=== PATIENT | female | born 1985 | race Caucasian/White ===

== ENCOUNTER 2018-11-17 05:04 | Inpatient (IN) | payer OTHER ==
[2018-11-17] MEDS ORDERED: Calcium Carbonate 500 MG Tab.Chew PO PRN (06:33)
[2018-11-17] MEDS ORDERED: Acetaminophen 325 MG Tab PO PRN (06:33)
[2018-11-17] MEDS ORDERED: Ondansetron 4 MG/2 ML SDV IV PRN (06:33)
[2018-11-17] MEDS ORDERED: Sodium Chloride 0.9% 10 ML Syringe FLUSH PRN (06:33)
[2018-11-17] MEDS ORDERED: fentaNYL 100 MCG/2 ML SDV IVPUSH PRN (06:33)
[2018-11-17] MEDS ORDERED: Lactated Ringers 500 ML IV SCH (07:00)
[2018-11-17] MEDS ORDERED: ePHEDrine 50 MG/ML SDV IVPUSH PRN (07:11)
[2018-11-17] MEDS ORDERED: Lactated Ringers 1,000 ML IV SCH (07:15)
--- NOTE | 2018-11-17 08:16 | PCM.LDHP ---
L&D History of Present Illness - General Date of Service: 11/17/18 Admit Problem/Dx: Patient Status Order with Admit Dx/Problem 11/17/18 06:34 Patient Status [ADT] Routine Admission Diagnosis/Problem Admission Diagnosis/Problem Source of Information: Patient History Limitations: Reports: No Limitations - History of Present Illness Associated Symptoms: Reports: N - Related Data Allergies/Adverse Reactions: Allergies Allergy/AdvReac Type Severity Reaction Status Date / Time No Known Allergies Allergy Verified 11/17/18 05:11 Home Medications: Home Meds Biotin 300 mcg DAILY 11/17/18 [History] Calcium Carbonate [Calcium] 500 mg DAILY 11/17/18 [History] Docosahexanoic Acid [ Dha] 200 mg PO DAILY 11/17/18 [History] Docusate Sodium [Colace] 100 mg BID PRN 11/17/18 [History] Fish Oil/[place]-3 Fatty Acids [Fish Oil 1,000 MG] 1 each PO DAILY 11/17/18 [ History] Omeprazole 40 mg PO ACBREAKFAST 11/17/18 [History] Past Medical History [employer] History: Reports: Psychiatric History: Reports: Other (See Below) Other Psychiatric History: 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 - Infectious Disease History Infectious Disease History: Reports: Chicken Pox Social & Family History - Family History Family Medical History: Noncontributory - Tobacco Use Smoking Status *Q: Former Smoker Years of Tobacco use: 3 Used Tobacco, but Quit: Yes Month/Year Tobacco Last Used: 10/2017 Second Hand Smoke Exposure: Yes - Caffeine Use Caffeine Use: Reports: None - Recreational Drug Use Recreational Drug Use: No H&P Review of Systems - Review of Systems: Review Of Systems: See Below General: Reports: No Symptoms HEENT: Reports: No Symptoms Pulmonary: Reports: No Symptoms Cardiovascular: Reports: No Symptoms Gastrointestinal: Reports: No Symptoms Genitourinary: Reports: No Symptoms Musculoskeletal: Reports: No Symptoms Skin: Reports: No Symptoms Psychiatric: Reports: No Symptoms Neurological: Reports: No Symptoms Hematologic/Lymphatic: Reports: No Symptoms Immunologic: Reports: No Symptoms L&D Exam - Exam Exam: See Below - Vital Signs Vital Signs: Last Vital Signs Temp 36.6 C 11/17/18 07:00 Pulse 90 11/17/18 08:00 Resp 18 11/17/18 08:00 BP 131/75 11/17/18 08:00 Pulse Ox Weight: 113.398 kg - OB Specific Contraction Duration (sec): 40-70 Contraction Frequency (min): 2.5-3 Contraction Intensity: Mild to Moderate Movement: Active Heart Tones: Present Heart Rate (FHR) Variability: Moderate (6-25 bmp) Presentation: Vertex - Lorenz Score Lorenz Score Cervix Position: Posterior Lorenz Score Consistency: Soft Lorenz Score Effacement: 51-70% Lorenz Score Dilation: 1-2 cm Lorenz Score Infant's Station: -3 Lorenz Score Total: 5 - Exam General: Alert, Oriented, Cooperative HEENT: PERRLA, Conjunctiva Clear, EACs Clear, EOMI, Hearing Intact, Mucosa Moist & [place], Nares Patent, Normal Nasal Septum, Posterior Pharynx Clear, TMs Clear Neck: Supple, Trachea Midline Lungs: Clear to Auscultation, Normal Respiratory Effort Cardiovascular: Regular Rate, Regular Rhythm GI/Abdominal Exam: Normal Bowel Sounds, Soft, Non-Tender, No Organomegaly, No Distention, No Abnormal Bruit, No Mass, Pelvis Stable Rectal Exam: Normal Exam, Normal Rectal Tone Genitourinary: Normal external exam, Normal bimanual exam, Normal speculum exam Back Exam: Normal Inspection, Full Range of Motion Extremities: Normal Inspection, Normal Range of Motion, Non-Tender, No Pedal Edema, Normal Capillary Refill Skin: Warm, Dry, Intact Neurological: Cranial Nerves Intact, Reflexes Equal Bilateral Psychiatric: Alert, Normal Affect, Normal Mood - Patient Data Lab Results Last 24 hrs: Laboratory Results - last 24 hr 11/17/18 11/17/18 11/17/18 Range/Units 05:12 05:12 06:46 WBC 11.7 H (4.5-11.0) K/uL RBC 4.75 (3.30-5.50) M/uL Hgb 13.3 (12.0-15.0) g/dL Hct 39.6 (36.0-48.0) % MCV 83 (80-98) fL MCH 28 (27-31) pg MCHC 34 (32-36) % Plt Count 179 (150-400) K/uL Neut % (Auto) 71 H (36-66) % Lymph % (Auto) 18 L (24-44) % [place] % (Auto) 9 H (2-6) % Eos % (Auto) 1 L (2-4) % Baso % (Auto) 0 (0-1) % Urine Color Yellow Urine Appearance Slightly cloudy Urine pH 6.5 (4.5-8.0) Ur Specific [place] 1.015 (1.008-1.030) Urine Protein Negative (NEGATIVE) mg/dL Urine Glucose (UA) Normal (NEGATIVE) mg/dL Urine Ketones Negative (NEGATIVE) mg/dL Urine Occult Blood Negative (NEGATIVE) Urine Nitrite Negative (NEGATIVE) Urine Bilirubin Negative (NEGATIVE) Urine Urobilinogen Normal (NORMAL) mg/dL Ur Leukocyte Esterase Negative (NEGATIVE) Urine RBC 0-5 (0-5) Urine WBC 0-5 (0-5) Ur Epithelial Cells Moderate Amorphous Sediment Not seen Urine Bacteria Few Urine Mucus Not seen Urine Opiates Screen Negative (NEGATIVE) Ur Oxycodone Screen Negative (NEGATIVE) Urine Methadone Screen Negative (NEGATIVE) Ur Propoxyphene Screen Negative (NEGATIVE) Ur Barbiturates Screen Negative (NEGATIVE) Ur Tricyclics Screen Negative (NEGATIVE) Ur Phencyclidine Scrn Negative (NEGATIVE) Ur Amphetamine Screen Negative (NEGATIVE) U Methamphetamines Scrn Negative (NEGATIVE) Urine MDMA Screen Negative (NEGATIVE) U Benzodiazepines Scrn Negative (NEGATIVE) U Cocaine Metab Screen Negative (NEGATIVE) U Marijuana (THC) Screen Negative (NEGATIVE) Result Diagrams: 11/17/18 05:12 - Problem List (1) Elective induction of labor planned SNOMED Code(s): 041904790 ICD Code: [id number] - Status: Acute Current Visit: Yes (2) Post-term , 40-42 weeks of gestation SNOMED Code(s): 17763012, 911021180 ICD Code: O48.0 - POST-TERM Status: Acute Current Visit: Yes Problem List Initiated/Reviewed/Updated: Yes Orders Last 24hrs: Active Orders 24 hr Category Date Time Status Patient Status [ADT] Routine ADT 11/17/18 06:34 Active Ambulate [RC] PER UNIT ROUTINE Care 11/17/18 06:33 Active Communication Order [RC] ASDIRECTED Care 11/17/18 06:34 Active Non Stress Test [RC] Click to Edit Care 11/17/18 06:34 Active May Shower [RC] ASDIRECTED Care 11/17/18 06:33 Active Notify Provider Vital Signs [RC] PRN Care 11/17/18 06:33 Active Notify Provider [RC] PRN Care 11/17/18 06:34 Active OB Check [OM.PC] Click to Edit Care 11/17/18 05:12 Ordered VTE/DVT Education [RC] Click to Edit Care 11/17/18 06:41 Active Vital Signs [RC] PER UNIT ROUTINE Care 11/17/18 06:34 Active Regular Diet [DIET] Diet 11/17/18 Breakfast Active Acetaminophen [Tylenol] Med 11/17/18 06:33 Active 650 mg PO Q4H PRN Calcium Carbonate [Tums] Med 11/17/18 06:33 Active 1,000 mg PO Q2H PRN Lactated Ringers [Ringers, Lactated] 1,000 ml Med 11/17/18 07:15 Active IV ASDIRECTED Ondansetron [Zofran] Med 11/17/18 06:33 Active 4 mg IV Q4H PRN Oxytocin/Normal Saline [Pitocin in NS 20 Units/1,000 ML Med 11/17/18 06:45 Active ] 20 unit in 1,000 ml IV TITRATE Sodium Chloride 0.9% [Saline Flush] Med 11/17/18 06:33 Active 10 ml FLUSH ASDIRECTED PRN ePHEDrine [ePHEDrine sulfate] Med 11/17/18 07:11 Active 5 mg IVPUSH ASDIRECTED PRN fentaNYL [Sublimaze] Med 11/17/18 06:33 Active 100 mcg IVPUSH Q1H PRN DVT/VTE Prophylaxis Reflex [OM.PC] Routine Oth 11/17/18 06:33 Ordered Saline Lock Insert [OM.PC] Routine Oth 11/17/18 06:34 Ordered Resuscitation Status Routine Resus Stat 11/17/18 06:33 Ordered Medication Orders Acetaminophen (Tylenol) 650 mg PO Q4H PRN PRN Reason: Pain (Mild 1-3) and fever Calcium Carbonate/Glycine (Tums) 1,000 mg PO Q2H PRN PRN Reason: Indigestion Ephedrine Sulfate (Ephedrine Sulfate) 5 mg IVPUSH ASDIRECTED PRN PRN Reason: Hypotension Fentanyl (Sublimaze) 100 mcg IVPUSH Q1H PRN PRN Reason: Pain (moderate 4-6) Oxytocin/Sodium Chloride (Pitocin In Ns 20 Units/1,000 Ml) 20 unit in 1,000 mls @ 6 mls/hr IV TITRATE ISA; Protocol Last Titration: 11/17/18 08:00 Dose: 3 munits/min, 9 mls/hr Admin: 11/17/18 07:00 Dose: 1 munits/min, 3 mls/hr Lactated Ringer's (Ringers, Lactated) 1,000 mls @ 100 mls/hr IV ASDIRECTED ISA Last Admin: 11/17/18 07:20 Dose: 100 mls/hr Ondansetron HCl (Zofran) 4 mg IV Q4H PRN PRN Reason: Nausea/Vomiting Sodium Chloride (Saline Flush) 10 ml FLUSH ASDIRECTED PRN PRN Reason: Keep Vein Open Assessment/Plan Comment:: 11/17/2018 33 yo came in around 0500 at 40 1/7 gestation thinking in active labor. SVE-2-3/80/-3 FHTs category one Has been denise most of night-every 3-5 minutes Was to be an induction planned elective today Decision to augment labor per mother's requests-risks and benefits discussed Labs-A negative, RPR nonreactive, Hep B neg, Hep C neg, HIV neg, GBS neg, Rubella Immune Plan- Admit for augmentation of labor Start Pitocin per protocol Monitor for labor Monitor FHTs pain management per patient request Plan and anticipate a vaginal delivery
[2018-11-17] MEDS ORDERED: Lactated Ringers 1,000 ML IV ONE ×2 (08:29→10:31)
[2018-11-17] MEDS ORDERED: Ropivacaine 100 ML ONE (11:32)
--- NOTE | 2018-11-17 12:18 | ANES ---
DATE OF SERVICE: 11/17/2018 INDICATIONS: Lorena is a 33-year-old female, patient of Betzaida Mijares. I was requested to assess her for labor epidural placement. Upon arrival, I found the quite healthy patient. Discussed with her the procedure as well as risks and benefits and her history and discussed lab work, found no contraindication to labor epidural. She was okay to proceed and consent was received. TECHNIQUE: I had her seated at the edge of the bed. Betadine prep x3 to lumbar region. Sterile drape was placed, 1% lidocaine skin wheal as well as deep at the L3-L4 region. 17- gauge Tuohy was placed to loss of resistance. Negative CSF, negative heme, negative paresthesia. I placed the catheter to 12 cm at the skin. Placed test dose through the catheter 3 mL of 1.5% lidocaine and 1:200,000 epinephrine with negative sequelae. The catheter was then secured to her back, placed in a prone position and dosed her with 12 mL of 0.2% ropivacaine. Began infusion of same at 12 mL an hour. She tolerated the procedure quite well. Please refer to nurse's notes for vital signs and neuro status, which were unchanged and within normal limits. I reported off to the nurse the procedure as well as the dose given, and again, she tolerated the procedure quite well. Tl Cortes CRNA /[id number]
--- NOTE | 2018-11-17 12:44 | PCM.PNLD ---
Labor Progress Note - VS & Meds Vital Signs: Last Vital Signs Temp 36.4 C 11/17/18 10:28 Pulse 77 11/17/18 12:15 Resp 16 11/17/18 12:15 BP 102/50 L 11/17/18 12:15 Pulse Ox 93 L 11/17/18 12:15 Active Medications: Current Medications Acetaminophen (Tylenol) 650 mg PO Q4H PRN PRN Reason: Pain (Mild 1-3) and fever Calcium Carbonate/Glycine (Tums) 1,000 mg PO Q2H PRN PRN Reason: Indigestion Ephedrine Sulfate (Ephedrine Sulfate) 5 mg IVPUSH ASDIRECTED PRN PRN Reason: Hypotension Fentanyl (Sublimaze) 100 mcg IVPUSH Q1H PRN PRN Reason: Pain (moderate 4-6) Oxytocin/Sodium Chloride (Pitocin In Ns 20 Units/1,000 Ml) 20 unit in 1,000 mls @ 6 mls/hr IV TITRATE ISA; Protocol Last Titration: 11/17/18 08:00 Dose: 3 munits/min, 9 mls/hr Lactated Ringer's (Ringers, Lactated) 1,000 mls @ 100 mls/hr IV ASDIRECTED ISA Last Admin: 11/17/18 07:20 Dose: 100 mls/hr Ondansetron HCl (Zofran) 4 mg IV Q4H PRN PRN Reason: Nausea/Vomiting Sodium Chloride (Saline Flush) 10 ml FLUSH ASDIRECTED PRN PRN Reason: Keep Vein Open Discontinued Medications Lactated Ringer's (Ringers, Lactated) 500 mls @ 0 mls/hr IV ASDIRECTED ISA Lactated Ringer's (Ringers, Lactated) 1,000 mls @ 999 mls/hr IV BOLUS ONE Stop: 11/17/18 09:29 Last Admin: 11/17/18 07:50 Dose: 999 mls/hr Lactated Ringer's (Ringers, Lactated) 1,000 mls @ 999 mls/hr IV ONETIME ONE Stop: 11/17/18 11:31 Last Admin: 11/17/18 11:20 Dose: 999 mls/hr Ropivacaine (Naropin 0.2%) Confirm Administered Dose 100 mls @ as directed .ROUTE .STK-MED ONE Stop: 11/17/18 11:33 - Uterine Contractions Uterine Monitoring Mode: External [place] Contraction Frequency (min): 2 Contraction Duration (sec): 40-130 Contraction Intensity: Strong Uterine Resting Tone: Soft - Monitoring Heart Rate (FHR) Variability: Moderate (6-25 bmp) Accelerations: Present, 15x15 - Vaginal Exam Dilation (cm): 8-9 Effacement (Percent): 90 Station: -2 Cervical Position: Anterior Sterile Vaginal Exam Performed By: Betzaida Mijares - Labor Progress (Free Text) Labor Progress: 11/17/2018 Patient progressing nicely in labor SVE-8-9/90/-2 FHTs category one Patient comfortable with epidural in place SROM at sometime before epidural clear fluid Plan- Continue to monitor for active labor Continue to monitor FHTs Continue Pitocin per protocol Continue epidural for pain control Plan and anticipate a vaginal delivery
[2018-11-17] MEDS ORDERED: Docusate Sodium 100 MG Cap PO PRN (14:03)
[2018-11-17] MEDS ORDERED: Benzocaine 20% Top Spray 56 GM Bottle TOP PRN (14:03)
[2018-11-17] MEDS ORDERED: Witch Hazel Medicated Pads 100/Jar TOP PRN (14:03)
[2018-11-17] MEDS ORDERED: Acetaminophen 325 MG Tab, 50 Tab Bulk Bottle PO PRN (14:03)
[2018-11-17] MEDS ORDERED: Lanolin 100% Cream 40 GM Tube TOP PRN (14:03)
[2018-11-17] MEDS ORDERED: Ibuprofen 200 MG Tab, 24 Tab Bulk Bottle PO PRN (14:03)
--- NOTE | 2018-11-17 17:29 | PCM.DEL ---
L & D Note - General Info Date of Service: 11/17/18 Mother's Due Date: 11/16/18 - Delivery Note Labor: Augmented by Oxytocin Delivery Outcome: Livebirth Infant Delivery Method: Spontaneous Vaginal Delivery-Single Delivery Mode: Spontaneous Presentation: Right Occiput Anterior (KEN[place]ON) Nuchal Cord: None Anesthesia Type: Epidural Amniotic Fluid Description: thick meconium Episiotomy Type: None Laceration: 1st Degree, Labial Suture type: Chromic Suture size: 3-0 Placenta: Intact, Spontaneous, Meconium Stained Cord: 3 Vessels Estimated Blood Loss: 350 Resuscitation Needed: No [place]: Bulb Syringe, Stimulated, Warmed, [place] Used Score 1 min: 8 Score 5 min: 8 Second Stage Interventions: Reports: Encouragement Given, Pushing Effectively, Pushing, McRobert's Position, Pushing, Pulls Own Legs Back Delivery Comments (Free Text/Narrative):: 11/17/2018 33 yo delivered a viable female in KENYON position at 1339 over an intact perineum at 40 1/7 gestational weeks. was placed on prewarmed blanket on mother abdomen, infant began to cry vigorously. Bulb suction was used due to thick meconium, infant began to pink in color. Delayed cord clamping was done for approximately 1 minute. Then cord was double clamped by CNM and cord was cut by father of the . APGARS-8/8, weight-8lbs 14.3oz, length-21.3 inches. Placenta then came spontaneous and intact, meconium stained , three vessel cord. EBL-350ml, laceration noted of the right labia, repaired in standard fashion with 3.0 chromic. No other lacerations noted of the perineum, vagina, cervix, or rectum. Infant now skin to skin and stable on mothers chest. Stages- [id number] - General Info Date of Service: 11/17/18 Functional Status: Reports: Pain Controlled - Review of Systems General: Reports: No Symptoms HEENT: Reports: No Symptoms Pulmonary: Reports: No Symptoms Cardiovascular: Reports: No Symptoms Gastrointestinal: Reports: No Symptoms Genitourinary: Reports: No Symptoms Musculoskeletal: Reports: No Symptoms Skin: Reports: No Symptoms Neurological: Reports: No Symptoms Psychiatric: Reports: No Symptoms - Patient Data Vitals - Most Recent: Last Vital Signs Temp 36.4 C 11/17/18 10:28 Pulse 77 11/17/18 12:15 Resp 16 11/17/18 12:15 BP 102/50 L 11/17/18 12:15 Pulse Ox 93 L 11/17/18 12:15 Weight - Most Recent: 113.398 kg I&O - Last 24 Hours: Intake & Output 11/17/18 11/17/18 11/17/18 06:59 14:59 22:59 Intake Total 1000 Balance 1000 Lab Results Last 24 Hours: Laboratory Results - last 24 hr 11/17/18 11/17/18 11/17/18 Range/Units 05:12 05:12 06:46 WBC 11.7 H (4.5-11.0) K/uL RBC 4.75 (3.30-5.50) M/uL Hgb 13.3 (12.0-15.0) g/dL Hct 39.6 (36.0-48.0) % MCV 83 (80-98) fL MCH 28 (27-31) pg MCHC 34 (32-36) % Plt Count 179 (150-400) K/uL Neut % (Auto) 71 H (36-66) % Lymph % (Auto) 18 L (24-44) % [place] % (Auto) 9 H (2-6) % Eos % (Auto) 1 L (2-4) % Baso % (Auto) 0 (0-1) % Urine Color Yellow Urine Appearance Slightly cloudy Urine pH 6.5 (4.5-8.0) Ur Specific [place] 1.015 (1.008-1.030) Urine Protein Negative (NEGATIVE) mg/dL Urine Glucose (UA) Normal (NEGATIVE) mg/dL Urine Ketones Negative (NEGATIVE) mg/dL Urine Occult Blood Negative (NEGATIVE) Urine Nitrite Negative (NEGATIVE) Urine Bilirubin Negative (NEGATIVE) Urine Urobilinogen Normal (NORMAL) mg/dL Ur Leukocyte Esterase Negative (NEGATIVE) Urine RBC 0-5 (0-5) Urine WBC 0-5 (0-5) Ur Epithelial Cells Moderate Amorphous Sediment Not seen Urine Bacteria Few Urine Mucus Not seen Urine Opiates Screen Negative (NEGATIVE) Ur Oxycodone Screen Negative (NEGATIVE) Urine Methadone Screen Negative (NEGATIVE) Ur Propoxyphene Screen Negative (NEGATIVE) Ur Barbiturates Screen Negative (NEGATIVE) Ur Tricyclics Screen Negative (NEGATIVE) Ur Phencyclidine Scrn Negative (NEGATIVE) Ur Amphetamine Screen Negative (NEGATIVE) U Methamphetamines Scrn Negative (NEGATIVE) Urine MDMA Screen Negative (NEGATIVE) U Benzodiazepines Scrn Negative (NEGATIVE) U Cocaine Metab Screen Negative (NEGATIVE) U Marijuana (THC) Screen Negative (NEGATIVE) Med Orders - Current: Current Medications Acetaminophen (Tylenol) 650 mg PO Q4H PRN PRN Reason: Pain (Mild 1-3) and fever Acetaminophen (Tylenol Bulk Bottle) 325 mg PO Q4H PRN PRN Reason: Pain Benzocaine (Crwn-H-Zangxhc 20% [place]) 0 gm TOP Q4H PRN PRN Reason: Perineal Comfort Measure Calcium Carbonate/Glycine (Tums) 1,000 mg PO Q2H PRN PRN Reason: Indigestion Docusate Sodium (Colace) 100 mg PO BID PRN PRN Reason: Constipation Emollient Ointment (Lansinoh Hpa) 0 gm TOP ASDIRECTED PRN PRN Reason: Sore Nipples Ephedrine Sulfate (Ephedrine Sulfate) 5 mg IVPUSH ASDIRECTED PRN PRN Reason: Hypotension Fentanyl (Sublimaze) 100 mcg IVPUSH Q1H PRN PRN Reason: Pain (moderate 4-6) Oxytocin/Sodium Chloride (Pitocin In Ns 20 Units/1,000 Ml) 20 unit in 1,000 mls @ 6 mls/hr IV TITRATE ISA; Protocol Last Titration: 11/17/18 08:00 Dose: 3 munits/min, 9 mls/hr Lactated Ringer's (Ringers, Lactated) 1,000 mls @ 100 mls/hr IV ASDIRECTED ISA Last Admin: 11/17/18 07:20 Dose: 100 mls/hr Ibuprofen (Motrin Bulk Bottle) 600 mg PO Q6H PRN PRN Reason: Pain Ondansetron HCl (Zofran) 4 mg IV Q4H PRN PRN Reason: Nausea/Vomiting Sodium Chloride (Saline Flush) 10 ml FLUSH ASDIRECTED PRN PRN Reason: Keep Vein Open Witch Olesya (Tucks) 1 pad TOP ASDIRECTED PRN PRN Reason: Hemorrhoids Discontinued Medications Lactated Ringer's (Ringers, Lactated) 500 mls @ 0 mls/hr IV ASDIRECTED [facility] Lactated Ringer's (Ringers, Lactated) 1,000 mls @ 999 mls/hr IV BOLUS ONE Stop: 11/17/18 09:29 Last Admin: 11/17/18 07:50 Dose: 999 mls/hr Lactated Ringer's (Ringers, Lactated) 1,000 mls @ 999 mls/hr IV ONETIME ONE Stop: 11/17/18 11:31 Last Admin: 11/17/18 11:20 Dose: 999 mls/hr Ropivacaine (Naropin 0.2%) Confirm Administered Dose 100 mls @ as directed .ROUTE .STK-MED ONE Stop: 11/17/18 11:33 - Exam General: Alert, Oriented HEENT: Pupils Equal, Pupils Reactive, EOMI, Mucous Membr. Moist/[place] Neck: Supple Lungs: Clear to Auscultation, Normal Respiratory Effort Cardiovascular: Regular Rate, Regular Rhythm GI/Abdominal Exam: Normal Bowel Sounds, Soft, Non-Tender, No Organomegaly, No Distention, No Abnormal Bruit, No Mass, Pelvis Stable (Female) Exam: Normal External Exam, Normal Speculum Exam, Normal Bimanual Exam, Enlarged Uterus, Vaginal Bleeding Back Exam: Normal Inspection, Full Range of Motion Extremities: Normal Inspection, Normal Range of Motion, Non-Tender, No Pedal Edema, Normal Capillary Refill Skin: Warm, Dry, Intact Wound/Incisions: Healing Well Neurological: No New Focal Deficit Psy/Mental Status: Alert, Normal Affect, Normal Mood - Problem List & Annotations (1) Elective induction of labor planned SNOMED Code(s): 809766213 Code(s): KVW2136 - Status: Acute Current Visit: Yes (2) Post-term , 40-42 weeks of gestation SNOMED Code(s): 39262391, 137813419 Code(s): O48.0 - POST-TERM Status: Acute Current Visit: Yes (3) Vaginal delivery SNOMED Code(s): 791180859 Code(s): O80 - ENCOUNTER FOR FULL-TERM UNCOMPLICATED DELIVERY Status: Acute Current Visit: Yes (4) Meconium in amniotic fluid SNOMED Code(s): 368878403, 395752284 Code(s): P96.83 - MECONIUM STAINING Status: Acute Current Visit: Yes (5) Perineal laceration of labia SNOMED Code(s): 92941020 Code(s): S31.41XA - LACERATION W/O FOREIGN BODY OF VAGINA AND VULVA, INIT ENCNTR Status: Acute Current Visit: Yes Qualifiers: Encounter type: initial encounter Qualified Code(s): S31.41XA - Laceration without foreign body of vagina and vulva, initial encounter - Problem List Review Problem List Initiated/Reviewed/Updated: Yes - My Orders Last 24 Hours: My Active Orders 11/17/18 05:12 OB Check [OM.PC] Click To Edit 11/17/18 06:33 Ambulate [RC] PER UNIT ROUTINE May Shower [RC] ASDIRECTED Notify Provider Vital Signs [RC] PRN Acetaminophen [Tylenol] 650 mg PO Q4H PRN Calcium Carbonate [Tums] 1,000 mg PO Q2H PRN Ondansetron [Zofran] 4 mg IV Q4H PRN Sodium Chloride 0.9% [Saline Flush] 10 ml FLUSH ASDIRECTED PRN fentaNYL [Sublimaze] 100 mcg IVPUSH Q1H PRN DVT/VTE Prophylaxis Reflex [OM.PC] Routine Resuscitation Status Routine 11/17/18 06:34 Patient Status [ADT] Routine Communication Order [RC] ASDIRECTED Non Stress Test [RC] Click to Edit Notify Provider [RC] PRN Vital Signs [RC] PER UNIT ROUTINE Saline Lock Insert [OM.PC] Routine 11/17/18 06:41 VTE/DVT Education [RC] Click to Edit 11/17/18 06:45 Oxytocin/Normal Saline [Pitocin in NS 20 Units/1,000 ML] 20 unit in 1,000 ml IV TITRATE 11/17/18 07:11 ePHEDrine [ePHEDrine sulfate] 5 mg IVPUSH ASDIRECTED PRN 11/17/18 07:15 Lactated Ringers [Ringers, Lactated] 1,000 ml IV ASDIRECTED 11/17/18 10:31 Communication Order [RC] Per Unit Routine Local Anesthetic Infusion Pump [RC] ASDIRECTED PCEA Epidural [RC] ASDIRECTED PCEA Epidural [RC] ASDIRECTED Urinary Catheter Assessment [RC] ASDIRECTED Verify Patient Consent Obtain [RC] ASDIRECTED Epidural Catheter Management [OM.PC] Urgent 11/17/18 10:45 Insert Urinary Catheter [OM.PC] ASDIRECTED 11/17/18 14:03 Up ad Lydia [RC] ASDIRECTED Acetaminophen [Tylenol Bulk Bottle] 325 mg PO Q4H PRN Benzocaine [Ciyy-O-Wkogfjb 20% [place]] See Dose Instructions TOP Q4H PRN Docusate Sodium [Colace] 100 mg PO BID PRN Ibuprofen [Motrin Bulk Bottle] 600 mg PO Q6H PRN Lanolin [Lansinoh HPA] 0 gm TOP ASDIRECTED PRN Witch Olesya [Tucks] 1 pad TOP ASDIRECTED PRN Assess Lochia [WOMSER] Per Unit Routine Assess Uterine Involution [WOMSER] Per Unit Routine 11/17/18 14:05 Patient Status [ADT] Routine Vital Signs [RC] PFP 11/17/18 14:06 Ice Therapy [OM.PC] Per Unit Routine Perineal Care [OM.PC] Per Unit Routine 11/17/18 Breakfast Regular Diet [DIET] 11/18/18 06:00 CBC WITH AUTO DIFF [HEME] Routine - Assessment Assessment:: 11/17/2018 33 yo G4 now P3 without complications Labial Laceration repaired - Plan Plan:: 11/17/2018 33 yo came in around 0500 at 40 1/7 gestation thinking in active labor. SVE-2-3/80/-3 FHTs category one Has been denise most of night-every 3-5 minutes Was to be an induction planned elective today Decision to augment labor per mother's requests-risks and benefits discussed Labs-A negative, RPR nonreactive, Hep B neg, Hep C neg, HIV neg, GBS neg, Rubella Immune Plan- Admit for augmentation of labor Start Pitocin per protocol Monitor for labor Monitor FHTs pain management per patient request Plan and anticipate a vaginal delivery 11/17/2018 Routine cares Encourage and support Encourage good perineal care Plan discharge 24-48 hours after delivery
--- NOTE | 2018-11-18 05:56 | PCM.PNPP ---
- General Info Date of Service: 11/18/18 Functional Status: Reports: Pain Controlled - Review of Systems General: Reports: No Symptoms HEENT: Reports: No Symptoms Pulmonary: Reports: No Symptoms Cardiovascular: Reports: No Symptoms Gastrointestinal: Reports: No Symptoms Genitourinary: Reports: No Symptoms Musculoskeletal: Reports: No Symptoms Skin: Reports: No Symptoms Neurological: Reports: No Symptoms Psychiatric: Reports: No Symptoms - General Info Date of Service: 11/18/18 - Patient Data Vital Signs - Most Recent: Last Vital Signs Temp 37.1 C 11/17/18 22:00 Pulse 95 11/17/18 22:12 Resp 16 11/17/18 22:12 BP 121/68 11/17/18 22:12 Pulse Ox 96 11/17/18 22:12 Weight - Most Recent: 113.398 kg I&O - Last 24 Hours: Intake & Output 11/17/18 11/17/18 11/18/18 14:59 22:59 06:59 Intake Total 1000 2 Balance 1000 2 Lab Results - Last 24 Hours: Laboratory Results - last 24 hr 11/17/18 11/17/18 11/18/18 Range/Units 06:46 18:27 05:05 WBC 11.5 H (4.5-11.0) K/uL RBC 4.65 (3.30-5.50) M/uL Hgb 13.1 (12.0-15.0) g/dL Hct 39.2 (36.0-48.0) % MCV 84 (80-98) fL MCH 28 (27-31) pg MCHC 33 (32-36) % Plt Count 171 (150-400) K/uL Neut % (Auto) 70 H (36-66) % Lymph % (Auto) 20 L (24-44) % [place] % (Auto) 8 H (2-6) % Eos % (Auto) 2 (2-4) % Baso % (Auto) 0 (0-1) % Urine Opiates Screen Negative (NEGATIVE) Ur Oxycodone Screen Negative (NEGATIVE) Urine Methadone Screen Negative (NEGATIVE) Ur Propoxyphene Screen Negative (NEGATIVE) Ur Barbiturates Screen Negative (NEGATIVE) Ur Tricyclics Screen Negative (NEGATIVE) Ur Phencyclidine Scrn Negative (NEGATIVE) Ur Amphetamine Screen Negative (NEGATIVE) U Methamphetamines Scrn Negative (NEGATIVE) Urine MDMA Screen Negative (NEGATIVE) U Benzodiazepines Scrn Negative (NEGATIVE) U Cocaine Metab Screen Negative (NEGATIVE) U Marijuana (THC) Screen Negative (NEGATIVE) Blood Type A NEGATIVE Gel Antibody Screen Positive A* Antibody Identification Cancelled Rhogam Indicated Yes, baby rh pos Med Orders - Current: Current Medications Acetaminophen (Tylenol) 650 mg PO Q4H PRN PRN Reason: Pain (Mild 1-3) and fever Acetaminophen (Tylenol Bulk Bottle) 325 mg PO Q4H PRN PRN Reason: Pain Last Admin: 11/17/18 20:05 Dose: 1 bottle Benzocaine ([id number]-Ipnbvwu 20% [place]) 0 gm TOP Q4H PRN PRN Reason: Perineal Comfort Measure Last Admin: 11/17/18 19:59 Dose: 1 spr Calcium Carbonate/Glycine (Tums) 1,000 mg PO Q2H PRN PRN Reason: Indigestion Docusate Sodium (Colace) 100 mg PO BID PRN PRN Reason: Constipation Last Admin: 11/17/18 19:59 Dose: 100 mg Emollient Ointment (Lansinoh Hpa) 0 gm TOP ASDIRECTED PRN PRN Reason: Sore Nipples Last Admin: 11/17/18 20:00 Dose: 1 applic Ephedrine Sulfate (Ephedrine Sulfate) 5 mg IVPUSH ASDIRECTED PRN PRN Reason: Hypotension Fentanyl (Sublimaze) 100 mcg IVPUSH Q1H PRN PRN Reason: Pain (moderate 4-6) Oxytocin/Sodium Chloride (Pitocin In Ns 20 Units/1,000 Ml) 20 unit in 1,000 mls @ 6 mls/hr IV TITRATE ISA; Protocol Last Titration: 11/17/18 08:00 Dose: 3 munits/min, 9 mls/hr Lactated Ringer's (Ringers, Lactated) 1,000 mls @ 100 mls/hr IV ASDIRECTED ISA Last Admin: 11/17/18 07:20 Dose: 100 mls/hr Ibuprofen (Motrin Bulk Bottle) 600 mg PO Q6H PRN PRN Reason: Pain Last Admin: 11/17/18 20:01 Dose: 1 bottle Ondansetron HCl (Zofran) 4 mg IV Q4H PRN PRN Reason: Nausea/Vomiting Sodium Chloride (Saline Flush) 10 ml FLUSH ASDIRECTED PRN PRN Reason: Keep Vein Open Witnishant Dacosta (Tucks) 1 pad TOP ASDIRECTED PRN PRN Reason: Hemorrhoids Last Admin: 11/17/18 19:59 Dose: 1 pad Discontinued Medications Lactated Ringer's (Ringers, Lactated) 500 mls @ 0 mls/hr IV ASDIRECTED ISA Lactated Ringer's (Ringers, Lactated) 1,000 mls @ 999 mls/hr IV BOLUS ONE Stop: 11/17/18 09:29 Last Admin: 11/17/18 07:50 Dose: 999 mls/hr Lactated Ringer's (Ringers, Lactated) 1,000 mls @ 999 mls/hr IV ONETIME ONE Stop: 11/17/18 11:31 Last Admin: 11/17/18 11:20 Dose: 999 mls/hr Ropivacaine (Naropin 0.2%) Confirm Administered Dose 100 mls @ as directed .ROUTE .STK-MED ONE Stop: 11/17/18 11:33 - Infant Interaction Infant Disposition, : to Nursery Support Person: - Recovery Exam Fundal Tone: Firm Fundal Level: At Umbilicus Fundal Placement: Midline Lochia Amount: Small Lochia Color: Rubra/Red Perineum Description: Intact, Minimal Bruising/Swelling Episiotomy/Laceration: None Bladder Status: Palpable Urinary Elimination: Voided - Exam General: Alert, Oriented HEENT: Pupils Equal Neck: Supple Lungs: Clear to Auscultation, Normal Respiratory Effort Cardiovascular: Regular Rate, Regular Rhythm GI/Abdominal Exam: Normal Bowel Sounds, Soft, Non-Tender, No Organomegaly, No Distention, No Abnormal Bruit, No Mass, Pelvis Stable Extremities: Normal Inspection, Normal Range of Motion, Non-Tender, No Pedal Edema, Normal Capillary Refill Skin: Warm, Dry, Intact Wound/Incisions: Healing Well Neurological: No New Focal Deficit Psy/Mental Status: Alert, Normal Affect, Normal Mood - Problem List & Annotations (1) Elective induction of labor planned SNOMED Code(s): 911277603 Code(s): UKI8406 - Status: Acute Current Visit: Yes (2) Post-term , 40-42 weeks of gestation SNOMED Code(s): 56058694, 005956117 Code(s): O48.0 - POST-TERM Status: Acute Current Visit: Yes (3) Vaginal delivery SNOMED Code(s): 506114708 Code(s): O80 - ENCOUNTER FOR FULL-TERM UNCOMPLICATED DELIVERY Status: Acute Current Visit: Yes (4) Meconium in amniotic fluid SNOMED Code(s): 095630318, 955325169 Code(s): P96.83 - MECONIUM STAINING Status: Acute Current Visit: Yes (5) Perineal laceration of labia SNOMED Code(s): 36753457 Code(s): S31.41XA - LACERATION W/O FOREIGN BODY OF VAGINA AND VULVA, INIT ENCNTR Status: Acute Current Visit: Yes Qualifiers: Encounter type: initial encounter Qualified Code(s): S31.41XA - Laceration without foreign body of vagina and vulva, initial encounter - Problem List Review Problem List Initiated/Reviewed/Updated: Yes - My Orders Last 24 Hours: My Active Orders 11/17/18 05:12 OB Check [OM.PC] Click to Edit 11/17/18 06:33 Ambulate [RC] PER UNIT ROUTINE May Shower [RC] ASDIRECTED Notify Provider Vital Signs [RC] PRN Acetaminophen [Tylenol] 650 mg PO Q4H PRN Calcium Carbonate [Tums] 1,000 mg PO Q2H PRN Ondansetron [Zofran] 4 mg IV Q4H PRN Sodium Chloride 0.9% [Saline Flush] 10 ml FLUSH ASDIRECTED PRN fentaNYL [Sublimaze] 100 mcg IVPUSH Q1H PRN DVT/VTE Prophylaxis Reflex [OM.PC] Routine Resuscitation Status Routine 11/17/18 06:34 Patient Status [ADT] Routine Communication Order [RC] ASDIRECTED Vital Signs [RC] PER UNIT ROUTINE Saline Lock Insert [OM.PC] Routine 11/17/18 06:41 VTE/DVT Education [RC] Click to Edit 11/17/18 06:45 Oxytocin/Normal Saline [Pitocin in NS 20 Units/1,000 ML] 20 unit in 1,000 ml IV TITRATE 11/17/18 07:11 ePHEDrine [ePHEDrine sulfate] 5 mg IVPUSH ASDIRECTED PRN 11/17/18 07:15 Lactated Ringers [Ringers, Lactated] 1,000 ml IV ASDIRECTED 11/17/18 10:31 Epidural Catheter Management [OM.PC] Urgent 11/17/18 10:45 Insert Urinary Catheter [OM.PC] ASDIRECTED 11/17/18 14:03 Up ad Lydia [RC] ASDIRECTED Acetaminophen [Tylenol Bulk Bottle] 325 mg PO Q4H PRN Benzocaine [[id number]-P-[id number] 20% [place]] See Dose Instructions TOP Q4H PRN Docusate Sodium [Colace] 100 mg PO BID PRN Ibuprofen [Motrin Bulk Bottle] 600 mg PO Q6H PRN Lanolin [Lansinoh HPA] 0 gm TOP ASDIRECTED PRN Witch Olesya [Tucks] 1 pad TOP ASDIRECTED PRN Assess Lochia [WOMSER] Per Unit Routine Assess Uterine Involution [WOMSER] Per Unit Routine 11/17/18 14:05 Patient Status [ADT] Routine Vital Signs [RC] PFP 11/17/18 14:06 Ice Therapy [OM.PC] Per Unit Routine Perineal Care [OM.PC] Per Unit Routine 11/17/18 18:27 SCREEN [BBK] Routine PATIENT RETYPE [BBK] Routine RHOGAM, [RHIG WORKUP, ] [BBK] Routine 11/17/18 Breakfast Regular Diet [DIET] - Assessment Assessment:: 11/17/2018 33 yo G4 now P3 without complications Meconium Fluid Labial Laceration repaired 11/18/2018 day one having RDS on O2 so currently pumping Fundus firm and bleeding decreasing Voiding and passing gas Rhogam done Hgb stable Laceration minimal swelling, no signs of hematoma or infection Discharging mother of early due to infant transfer to a NICU Mother to see me in clinic in 6 weeks for - Plan Plan:: 11/17/2018 33 yo came in around 0500 at 40 1/7 gestation thinking in active labor. SVE-2-3/80/-3 FHTs category one Has been denise most of night-every 3-5 minutes Was to be an induction planned elective today Decision to augment labor per mother's requests-risks and benefits discussed Labs-A negative, RPR nonreactive, Hep B neg, Hep C neg, HIV neg, GBS neg, Rubella Immune Plan- Admit for augmentation of labor Start Pitocin per protocol Monitor for labor Monitor FHTs pain management per patient request Plan and anticipate a vaginal delivery 11/17/2018 Routine cares Encourage and support Encourage good perineal care Plan discharge 24-48 hours after delivery 11/18/2018 Continue routine cares Continue to encourage and support /pumping Encourage good perineal care Plan discharge today due to transfer
== END 2018-11-18 08:45 | disposition home or self-care (01) | DRG 807 ==
LOC: JP.OB 05:04 → OBSVTOIN 13:39 → JP.OB 13:39 → JP.MS 20:23
PROVIDERS: ADMIT Advanced Practice Midwife; ATTEND Advanced Practice Midwife
PROC: 10E0XZZ Delivery of Products of Conception, External Approach (ICD-10-PCS; principal; 2018-11-17)
PROC: 3E033VJ Introduction of Other Hormone into Peripheral Vein, Percutaneous Approach (ICD-10-PCS; principal; 2018-11-17)
PROC: 0UQMXZZ Repair Vulva, External Approach (ICD-10-PCS; principal; 2018-11-17)
PROC: 00HU33Z Insertion of Infusion Device into Spinal Canal, Percutaneous Approach (ICD-10-PCS; 2018-11-17)
PROC: 3E0R3BZ Introduction of Anesthetic Agent into Spinal Canal, Percutaneous Approach (ICD-10-PCS; 2018-11-17)
DX: O48.0 Post-term pregnancy (principal); Z37.0 Single live birth; O77.0 Labor and delivery complicated by meconium in amniotic fluid; O70.0 First degree perineal laceration during delivery; Z3A.40 40 weeks gestation of pregnancy; Z87.891 Personal history of nicotine dependence
CPT/HCPCS: 36415; 36430; 51702; 59409; 80305-QW; 81001; 85025; 85460; 86850; 86900; 86901; 99211; A9270-GY; J2590; J2790; J2795; J7120

== ENCOUNTER 2021-02-13 10:29 | Day surgery (SDC) | payer OTHER ==
[~2021-02-13 10:29] MED LIST: Bupivacaine 0.5% 50 ML MDV ONE; Lidocaine 1% with EPINEPHrine 1:100,000 50 ML MDV ONE; Meropenem 500 MG SDV ONE
[2021-02-13] MEDS ORDERED: Acetaminophen 500 MG Tab PO ONE (11:00)
[2021-02-13] MEDS ORDERED: Dextrose 5%-Lactated Ringers 1,000 ML IV SCH (11:30)
[2021-02-13] MEDS ORDERED: Meropenem 500 MG in Sodium Chloride 0.9% 50 ML IV ONE (11:45)
[2021-02-13] MEDS ORDERED: Propofol 200 MG/20 ML SDV ONE (13:27)
[2021-02-13] MEDS ORDERED: Midazolam 1 MG/ML 2 ML SDV ONE (13:27)
[2021-02-13] MEDS ORDERED: fentaNYL 100 MCG/2 ML SDV ONE ×2 (13:27→15:20)
[2021-02-13] MEDS ORDERED: Dexamethasone 4 MG/ML SDV ONE (14:04)
[2021-02-13] MEDS ORDERED: Ondansetron 4 MG/2 ML SDV ONE (14:04)
[2021-02-13] MEDS ORDERED: Ketorolac 30 MG/ML SDV IM ONE (15:43)
--- NOTE | 2021-02-19 13:53 | OR ---
DATE OF PROCEDURE: 02/13/2021 SURGEON: Rancho Melendez MD PREOPERATIVE DIAGNOSIS: Puncture wound, plantar aspect, right foot with surrounding cellulitis. POSTOPERATIVE DIAGNOSIS: Puncture wound, plantar aspect, right foot with necrosis and cellulitis along with induration extending to and involving the plantar fascia. OPERATIVE PROCEDURE: Debridement and drainage of puncture wound, plantar aspect of right foot, extending to and including plantar fascia ([id number]). ANESTHESIA: General. INDICATIONS FOR PROCEDURE: A 35-year-old female status post injury to right foot on February 02 when she stepped [place] something in the river, which penetrated her skin. She was seen on , started on oral Keflex and then over the last 48 hours, has had increased spreading redness, and plan is to proceed with debridement of that area and identification of any foreign bodies to the extent possible. She was started on Levaquin yesterday. Potential risks of procedure including bleeding, infection, injury to the tendon, nerves in the area, possible persistence of the infection over time were reviewed, and the patient wishes to proceed. DETAILS OF PROCEDURE: The patient was taken to the operating room and placed in the supine position. After general endotracheal anesthesia was induced, the right foot and surrounding areas were prepped and draped. Over the mid plantar aspect of right foot, a circular incision was made over the edge of the reddened and indurated area. This was continued down through the skin and subcutaneous tissue. Eventually, this tracked medially to some extent, and at that point, all of the indurated and infected tissue was excised. There was no obvious foreign body, but this maybe simply a case where there might be simply some grains of sand in the wound causing the foreign body reaction. At any rate, the patient did have some bleeding that was controlled with 4-0 Vicryl sutures and cultures were obtained after dissection of the infected tissue from below and the wound was then anesthetized with 0.5% Marcaine with epinephrine and packed with iodoform gauze. The area of debridement measured around 3 cm in maximal dimension. Rancho Melendez MD /[id number]
== END 2021-02-13 16:50 | disposition home or self-care (01) ==
LOC: JP.SDS 10:29
PROVIDERS: ATTEND Surgery
DX: S91.331A Puncture wound without foreign body, right foot, initial encounter (principal); L03.115 Cellulitis of right lower limb; F17.210 Nicotine dependence, cigarettes, uncomplicated; M79.89 Other specified soft tissue disorders; Z79.899 Other long term (current) drug therapy; Z98.890 Other specified postprocedural states; Z90.49 Acquired absence of other specified parts of digestive tract
CPT/HCPCS: 11043; 36415; 80048; 81025; 85027; 87070; 87075; 87077; 87205; 88304; A9270; J1100; J1885; J2185; J2250; J2405; J2704; J3010; J3490; J7121